=== PATIENT | male | born 1960 | race Caucasian/White ===

== ENCOUNTER 2017-11-08 14:20 | Day surgery (SDC) | payer BC ==
[~2017-11-08] VITALS: Ht 177.8 cm; Wt 67.6 kg
[2017-11-08] MEDS ORDERED: LACTATED RINGERS 1,000 ML IV SCH (14:37)
[2017-11-08] MEDS ORDERED: LOSA25TA5 PO (14:59)
[2017-11-08] MEDS ORDERED: TRAM50TA2 PO (14:59)
[2017-11-08 15:08] VITALS: BP 156/95
[2017-11-08] MEDS ORDERED: MIDAZOLAM 1 MG/ML, 2ML ONE (15:13)
[2017-11-08] MEDS ORDERED: FENTANYL PF 100 MCG/2ML ONE ×2 (15:13→16:02)
[2017-11-08] MEDS ORDERED: EPINEPHRINE 1 MG/ML, 1ML ONE (15:15)
[2017-11-08] MEDS ORDERED: BUPIVACAINE/PF 0.5% ONE (15:15)
[2017-11-08 15:21] LABS: HCT (SEDRATE) 43.3 % (39.2-51.8)
[2017-11-08] MEDS ORDERED: ONDANSETRON 2MG/ML, 2ML IVPush PRN (15:30)
[2017-11-08] MEDS ORDERED: OXYcodone 5 MG/5 ML ORAL.SOL UDC PO PRN (15:30)
[2017-11-08] MEDS ORDERED: MEPERIDINE/PF 25MG/0.5ML IVPush PRN (15:30)
[2017-11-08] MEDS ORDERED: HYDROmorphone 1 MG/ML, 1ML IV PRN (15:30)
[2017-11-08] MEDS ORDERED: LABETALOL 5MG/ML, 20ML IV PRN (15:30)
[2017-11-08] MEDS ORDERED: FENTANYL PF 100 MCG/2ML IV PRN (15:30)
[2017-11-08 15:32] LABS: INTERNATIONAL NORMALIZED RATIO 0.94 (0.93-1.1); PROTHROMBIN TIME 9.8 Seconds (9.6-11.5)
[2017-11-08] MEDS ORDERED: DEXAMETHASONE 4 MG/ML, 5ML ONE (15:36)
[2017-11-08] MEDS ORDERED: CEFAZOLIN 1,000 MG ONE (15:36)
[2017-11-08] MEDS ORDERED: PROPOFOL 10 MG/ML, 20ML ONE (15:36)
[2017-11-08] MEDS ORDERED: SUCCINYLCHOLINE 20 MG/ML, 10ML ONE (15:36)
[2017-11-08] MEDS ORDERED: ONDANSETRON 2MG/ML, 2ML ONE (15:36)
[2017-11-08] MEDS ORDERED: PLEASE ENTER ALLERGIES MC SCH (16:00)
[2017-11-08] MEDS ORDERED: OXYcodone 5 MG/5 ML ORAL.SOL UDC ONE (16:39)
[2017-11-08] MEDS ORDERED: PROPRANOLOL 10 MG TABLET PO ONE (18:30)
== END 2017-11-08 20:38 | disposition home or self-care (01) ==
LOC: OR 14:20 → 4NOR 17:33 → OR 20:38
PROVIDERS: ATTEND Orthopaedic Surgery Orthopaedic Surgery of the Spine
DX: M80.88XA Other osteoporosis with current pathological fracture, vertebra(e), initial encounter for fracture (principal); I10 Essential (primary) hypertension
CPT/HCPCS: 22513; 36415; 71045; 72072; 85610; 85651; 88307; 88311; C1713; J0171; J0330; J0690; J1100; J2250; J2405; J2704; J3010; J3490; J7120